=== PATIENT | male | born 1990 | race African-American/Black ===

== ENCOUNTER 2020-06-30 13:41 | Emergency (ER) | payer OTHER | END 2020-06-30 15:07 | disposition home or self-care (01) | LOC: ERS 13:41 | DX: U07.1 COVID-19 (principal); J12.82 Pneumonia due to coronavirus disease 2019; Z87.891 Personal history of nicotine dependence | CPT/HCPCS: 99283 ==

== ENCOUNTER 2022-03-26 13:52 | Outpatient (CLI) | payer BC | END 2022-03-26 13:53 | disposition home or self-care (01) | LOC: BICRAD 13:52 | PROVIDERS: ATTEND Nurse Practitioner Family | DX: U09.9 Post COVID-19 condition, unspecified (principal) | CPT/HCPCS: 71046 ==